=== PATIENT | female | born 1950 | race African-American/Black ===

== ENCOUNTER → 2017-11-10 | Outpatient (CLI) | payer MEDICARE, MEDICAID ==
[~2017-11-10] MED LIST: ASPI-1159 PO; CHOL20004 PO; CLON0.1T PO; DIPH25CA83 PO; FENO135C PO; FOLI-43 PO; FURO40TA5 PO; LABE100T PO; LIP40 PO; METO5TAB69 PO; P50 PO; POTA20TA12 PO; cyanocobalamin; lopressor PO
== END | disposition home or self-care (01) ==
LOC: MAMMO 12:41
PROVIDERS: ATTEND Specialist
DX: Z12.31 Encounter for screening mammogram for malignant neoplasm of breast (principal)
CPT/HCPCS: 77067

== ENCOUNTER 2017-11-30 09:33 | Emergency (ER) | payer MEDICARE, MEDICAID ==
[~2017-11-30] VITALS: Ht 182.9 cm; Wt 88.0 kg
[2017-11-30] MEDS ORDERED: CLONIDINE 0.2MG TABLET PO ONE (10:30)
[2017-11-30] MEDS ORDERED: TRAMADOL 50MG TABLET PO ONE (10:30)
[2017-11-30 10:42] LABS: CLARITY URINE CLEAR (CLEAR); COLOR URINE YELLOW (YELLOW); KETONES URINE NEGATIVE (NEGATIVE); LEUKOCYTE ESTERASE URINE NEGATIVE (NEGATIVE); NITRITE URINE NEGATIVE (NEGATIVE); OCCULT BLOOD URINE NEGATIVE (NEGATIVE); PH URINE 6.5 (4.5-8.0); PROTEIN URINE NEGATIVE (NEGATIVE); SPECIFIC GRAVITY URINE 1.017 (1.005-1.030)
[2017-11-30 10:49] LABS: BASOPHILS % 1.1 % (0.0-2.0); EOSINOPHILS % 4.9 % (0.0-5.0); HEMATOCRIT. 39.4 % (36.0-48.0); HEMOGLOBIN. 13.4 g/dL (12.0-16.0); LYMPHOCYTES % 38.2 % (20.0-50.0); MEAN CORPUSCULAR HEMOGLOBIN 27.3 pg (28.0-32.0); MEAN CORPUSCULAR VOLUME 80.3 fL (81.0-99.0); MONOCYTES % 9.5 % (2.0-8.0); NEUTROPHILS % 46.3 % (40.0-76.0); PLATELET 148 x1000/uL (130-400); RED CELL DISTRIBUTION WIDTH 16.8 % (11.6-14.6)
[2017-11-30 10:57] LABS: PARTIAL THROMBOPLASTIN TIME 30.6 sec (23.4-31.0); PROTHROMBIN TIME 10.5 sec (9.4-11.6)
[2017-11-30 11:06] LABS: CHLORIDE 109 mEq/L (98-107); TROPONIN I < 0.02 ng/mL (0.00-0.04)
[2017-11-30] MEDS ORDERED: CLONIDINE 0.1MG TABLET PO ONE (14:30)
[2017-11-30 15:38] VITALS: BP 158/103
== END 2017-11-30 15:52 | disposition home or self-care (01) ==
LOC: ER 09:33
DX: I10 Essential (primary) hypertension (principal); M54.9 Dorsalgia, unspecified; E78.00 Pure hypercholesterolemia, unspecified; E03.9 Hypothyroidism, unspecified; Z91.013 Allergy to seafood; Z88.8 Allergy status to other drugs, medicaments and biological substances; Z91.018 Allergy to other foods; Z79.82 Long term (current) use of aspirin
CPT/HCPCS: 36415; 70450; 71045; 80048; 81003; 84484; 85025; 85610; 85730; 93005; 99285

== ENCOUNTER 2018-05-04 09:19 | Day surgery (SDC) | payer MEDICARE, MEDICAID ==
[~2018-05-04] VITALS: Ht 160 cm; Wt 86.2 kg
[2018-05-04] MEDS ORDERED: ZOLP5TAB2 PO (10:21)
[2018-05-04] MEDS ORDERED: MINO10TA PO (10:21)
[2018-05-04] MEDS ORDERED: norco (10:21)
[2018-05-04] MEDS ORDERED: S350 PO (10:21)
[2018-05-04] MEDS ORDERED: LIDOCAINE HCL 1% 20ML VIAL (Pyxis) INJ ONE (10:46)
[2018-05-04] MEDS ORDERED: IODIXANOL 320MG/ML 100 ML BOTTLE IV ONE (10:46)
[2018-05-04] MEDS ORDERED: FENTANYL CITRATE/PF 50MCG/ML 2ML VIAL ONE (10:48)
[2018-05-04] MEDS ORDERED: HYDROCORTISONE SOD SUCCINATE 250 MG/2 ML VIAL ONE (10:48)
[2018-05-04] MEDS ORDERED: MIDAZOLAM HCL 2 MG/2 ML VIAL ONE (10:48)
[2018-05-04] MEDS ORDERED: FAMOTIDINE 20MG/2ML VIAL IV ONE (10:49)
[2018-05-04] MEDS ORDERED: ONDANSETRON HCL 4MG/2ML VIAL IV PRN (11:45)
== END 2018-05-04 16:00 | disposition home or self-care (01) ==
LOC: CARD 09:19
PROVIDERS: ATTEND Specialist
DX: I70.1 Atherosclerosis of renal artery (principal); I15.0 Renovascular hypertension; E78.5 Hyperlipidemia, unspecified; I10 Essential (primary) hypertension; E03.9 Hypothyroidism, unspecified; Z91.018 Allergy to other foods; Z88.8 Allergy status to other drugs, medicaments and biological substances; Z91.013 Allergy to seafood
CPT/HCPCS: 36252; 99152; C1725; C1760; C1769; C1893; J1644; J1720; J2250; J3010; J3490; Q9967

== ENCOUNTER → 2018-05-18 | Outpatient (CLI) | payer MEDICARE, MEDICAID ==
[~2018-05-18] MED LIST changes: +MINO10TA PO; +S350 PO; +ZOLP5TAB2 PO; +norco
== END | disposition home or self-care (01) ==
LOC: MAMMO 08:40
PROVIDERS: ATTEND Specialist
DX: N63.14 Unspecified lump in the right breast, lower inner quadrant (principal)
CPT/HCPCS: 77066

== ENCOUNTER → 2019-05-23 | Outpatient (CLI) | payer MEDICARE, OTHER ==
[~2019-05-23] MED LIST changes: -ASPI-1159 PO; +ASPI-1393 PO; -LABE100T PO; +LABE100T5 PO
== END | disposition home or self-care (01) ==
LOC: MAMMO 08:41
PROVIDERS: ATTEND Specialist
DX: Z12.31 Encounter for screening mammogram for malignant neoplasm of breast (principal)
CPT/HCPCS: 77067

== ENCOUNTER 2019-12-19 15:56 | Emergency (ER) | payer MEDICARE, MEDICAID ==
[~2019-12-19] VITALS: Ht 160 cm; Wt 85.0 kg
[~2019-12-19 15:56] MED LIST changes: -ASPI-1393 PO; +ASPI-1497 PO; +CARI350T28 PO; -METO5TAB69 PO; +METO5TAB7 PO; -S350 PO
[2019-12-19] MEDS ORDERED: HYDROCODONE/ACETAMINOPHEN 5/325MG TABLET PO STA (18:54)
[2019-12-19] MEDS ORDERED: ACETAMINOPHEN 325MG TABLET PO ONE (19:15)
[2019-12-19 19:18] LABS: BASOPHILS % 1.2 % (0.0-2.0); EOSINOPHILS % 4.2 % (0.0-5.0); HEMOGLOBIN. 14.8 g/dL (12.0-16.0); LYMPHOCYTES % 50.4 % (20.0-50.0); MEAN CORPUSCULAR HEMOGLOBIN 27.9 pg (28.0-32.0); MEAN CORPUSCULAR VOLUME 84.8 fL (81.0-99.0); MONOCYTES % 5.7 % (2.0-8.0); NEUTROPHILS % 38.5 % (40.0-76.0); PLATELET 138 x1000/uL (130-400); RED CELL DISTRIBUTION WIDTH 16.7 % (11.6-14.6)
[2019-12-19 19:22] LABS: CHLORIDE 109 mEq/L (98-107)
[2019-12-19 20:09] VITALS: BP 202/114
[2019-12-19] MEDS ORDERED: CLONIDINE 0.2MG TABLET PO ONE (20:15)
== END 2019-12-19 20:48 | disposition home or self-care (01) ==
LOC: ER 15:56
DX: R07.89 Other chest pain (principal); I10 Essential (primary) hypertension; E78.00 Pure hypercholesterolemia, unspecified; Z91.041 Radiographic dye allergy status; Z91.013 Allergy to seafood; Z91.018 Allergy to other foods
CPT/HCPCS: 36415; 71045; 80053; 84484; 85025; 99285